=== PATIENT | male | born 2000 | race Caucasian/White ===

== ENCOUNTER 2022-07-02 06:57 | Emergency (ER) | payer OTHER, SELFPAY ==
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
[2022-07-02 07:40] VITALS: BP 118/67; PULSE 66; RESP 16; TEMP 36.6; O2SAT 100
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
[2022-07-02 10:37] VITALS: BP 122/77; PULSE 80; RESP 16; O2SAT 100
== END 2022-07-02 10:39 | disposition home or self-care (01) ==
PROVIDERS: Emergency Provider General Practice; PCP Internal Medicine
DX: M25.512 Pain in left shoulder (principal); V28.49XA Other motorcycle driver injured in noncollision transport accident in traffic accident, initial encounter
CPT/HCPCS: 73030; 99283

== ENCOUNTER 2023-02-01 22:44 | Emergency (ER) | payer SELFPAY ==
[2023-02-01 22:52] VITALS: BP 140/72; PULSE 98; RESP 15; TEMP 37.1; O2SAT 98
[2023-02-01] MEDS: KETOROLAC 30 MG/ML VIAL (*BKC) IM (23:25)
[2023-02-02 00:09] LABS: Strep Group A RT-PCR NOT DETECTED (Negative)
[2023-02-02 00:23] LABS: Influenza A QL RT-PCR Negative (Negative); Influenza B QL RT-PCR Negative (Negative); RSV RNA, RT-PCR Negative (Negative); SARS-CoV-2 RNA PCR Negative (Negative)
--- NOTE | 2023-02-02 00:27 | ED.FEVER ---
HPI - Fever General Chief Complaint: Fever Stated Complaint: fever Time Seen by Provider: 02/01/23 23:08 History of Present Illness HPI Narrative: A few days ago patient started having a sore throat, with swollen lymph nodes and a fever, he has been taking Tylenol and his doctor started him on amoxicillin which he has taken 2 days of but he is still having symptoms. Related Data Allergies Allergy/AdvReac Type Severity Reaction Status Date / Time No Known Allergies Allergy Verified 02/01/23 22:55 Review of Systems Review of Systems: CONST: fever. HEENT: sore throat C/V: No chest pain RESP: No cough GI: No abdominal pain : No dysuria. M/S: No joint pain. SKIN: No rash. NEURO: Mild headache PSYCH: [No depression] [facility] Past Medical History Medical History (Updated 02/02/23 @ 00:29 by Kavitha Harvey MD) Patient denies medical problems Social History Social History (Updated 07/02/22 @ 10:16 by Holly Easton MD) Smoking status: Never smoker Exam Narrative: EXAMINATION OF ORGAN SYSTEMS/BODY AREAS: Constitutional: Vital signs per nursing GENERAL:[No acute distress, non-toxic appearing.] HEAD: Normal with no signs of head trauma. EYES: EOMI, conjunctiva normal ENT: Some tonsillar erythema and swelling without exudates, uvular deviation, or muffled voice LUNGS: Nonlabored breathing. HEART: [Regular rate and rhythm] ABD: [Soft], [nontender to palpation] EXT: Normal range of motion SKIN: [No rashes or lesions.] NEURO: [Alert and oriented x 3. No gross focal sensory or strength deficits.] PSYCH: Normal affect Course Vital Signs Vital signs: Vital Signs Temperature 98.7 F 02/01/23 22:52 Pulse Rate 98 02/01/23 22:52 Respiratory Rate 15 02/01/23 22:52 Blood Pressure 140/72 02/01/23 22:52 Pulse Oximetry 98 02/01/23 22:52 Oxygen Delivery Room Air 02/01/23 22:52 Temperature 98.7 F 02/01/23 22:52 Pulse Rate 98 02/01/23 22:52 Respiratory Rate 15 02/01/23 22:52 Blood Pressure 140/72 02/01/23 22:52 Pulse Oximetry 98 02/01/23 22:52 Oxygen Delivery Room Air 02/01/23 22:52 MDM - Fever MDM Narrative Medical decision making narrative: ED COURSE AND MEDICAL DECISION MAKING: This 22year old patient presents with symptoms most suggestive of viral upper respiratory tract infection. He does have some palpable lymph nodes and tonsillar erythema, without any signs of airway compromise, and he has nonlabored respirations. Patient is treated symptomatically with Toradol. Strep and flu, RSV, COVID swabs obtained are negative. On reevaluation, he is improved and discharged home in stable condition with expectant management and PCP follow-up. Return precautions were provided. Lab Data Labs: Lab Results 02/01/23 Range/Units 23:36 Influenza A (RT-PCR) Negative (Negative) Influenza B (RT-PCR) Negative (Negative) RSV (RT-PCR) Negative (Negative) SARS-CoV-2 RNA (RT-PCR) Negative (Negative) Group A Strep (PCR) Not detected (Negative) Discharge Plan Discharge Clinical Impression: Acute viral syndrome Patient Disposition: Home, Self-Care Condition: Stable Instructions: Antibiotic Form, Upper Respiratory Infection (ED) Additional Instructions: Please follow up with your doctor; you can always return for any further issues. Prescriptions: New naproxen 250 mg tablet 250 mg PO BID PRN (Reason: fever or pain) Qty: 20 0RF Follow-up/Referrals: Holden,Rowdy Mcneil MD [Primary Care Provider] - 2 Days
== END 2023-02-02 00:45 | disposition home or self-care (01) ==
PROVIDERS: Emergency Provider Emergency Medicine; PCP Internal Medicine
DX: B34.9 Viral infection, unspecified (principal); Z20.822 Contact with and (suspected) exposure to COVID-19
CPT/HCPCS: 87637; 87651; 96372; 99283; J1885

== ENCOUNTER 2023-02-02 08:12 | Emergency (ER) | payer SELFPAY ==
--- NOTE | ~2023-02-02 | XR_ITS ---
EXAMINATION: XR chest 2V DATE: 02/02/2023 08:56 INDICATION: Cough TECHNIQUE: PA and lateral views of the chest were obtained. COMPARISON: None FINDINGS: The lungs are clear with no focal airspace opacities, pulmonary edema, pleural effusion or pneumothor ax. The cardiomediastinal silhouette is normal. Visualized bones and soft tissues are unremarkable. IMPRESSION: 1. Normal chest radiograph. Reviewed, dictated and finalized at location A. IMPRESSION: 1. Normal chest radiograph.
[2023-02-02 08:15] VITALS: BP 147/74; PULSE 99; RESP 16; TEMP 37.1; O2SAT 100
--- NOTE | 2023-02-02 09:06 | ED.GENADULT ---
HPI - General Adult General Chief complaint: Upper Respiratory Infection Stated complaint: fever,sore throat Time Seen by Provider: 02/02/23 08:38 History of Present Illness HPI narrative: 22-year-old male presented the emergency department for evaluation of persistent fever cough chills and generalized weakness. Patient was evaluated in the emergency department last night and had negative COVID flu RSV and strep. Patient presented to the emergency department again for further evaluation stating that he still does not feel better. Over the course of the few days patient has been alternating between Tylenol and ibuprofen. Patient was discharged with naproxen. Patient's primary care physician started him on amoxicillin. Related Data Allergies Allergy/AdvReac Type Severity Reaction Status Date / Time No Known Allergies Allergy Verified 02/02/23 08:29 Review of Systems Review of Systems: All systems reviewed & are unremarkable except as noted in HPI and below PMFSH Past Medical History Medical History (Updated 02/02/23 @ 09:15 by Luis Le MD) Patient denies medical problems Social History Social History (Updated 07/02/22 @ 10:16 by Holly Easton MD) Smoking status: Never smoker Exam Narrative: APPEARANCE: Well appearing, no pain, no distress, well-nourished. HEAD: normocephalic, atraumatic. EYES: PERRLA/EOMI, conjunctivae clear. NOSE: Normal no drainage EARS:TMS clear with good light reflex. THROAT: Pharynx clear, no exudate. NECK: Supple. No adenopathy, no masses. RESPIRATORY: Airway patent, respirations nonlabored. Clear to auscultation bilaterally, no rales, rhonchi, wheezing. CARDIOVASCULAR: Regular rate and rhythm without murmurs rubs or gallops. ABDOMINAL: Soft, nontender, nondistended, normal bowel sounds MUSCULOSKELETAL: Moves all extremities. Strength/ROM intact, No edema, No calf tenderness. NEURO: Alert. Cranial nerves II through XII intact. Grossly intact SKIN: Warm, dry. Normal Color Course Course Emergency Course: 22-year-old male presented the ED for evaluation of cough congestion fever and chills. Patient has already been taking amoxicillin as outpatient. Patient will be switched to Augmentin and azithromycin since he has already been started on antibiotics. Chest x-ray showed no acute cardiopulmonary abnormality. Patient and family were updated on the results of the work-up. All questions were addressed and patient was well-appearing at time of discharge. Vital Signs Vital signs: Vital Signs Temperature 98.8 F 02/02/23 08:15 Pulse Rate 99 02/02/23 08:15 Respiratory Rate 16 02/02/23 08:15 Blood Pressure 147/74 H 02/02/23 08:15 Pulse Oximetry 100 02/02/23 08:15 Oxygen Delivery Room Air 02/02/23 08:15 Temperature 98.8 F 02/02/23 08:15 Pulse Rate 100 02/02/23 09:43 Respiratory Rate 18 02/02/23 09:43 Blood Pressure 115/74 02/02/23 09:43 Pulse Oximetry 98 02/02/23 09:43 Oxygen Delivery Room Air 02/02/23 08:26 Medical Decision Making Vital Signs Vital Signs: Vital Signs Temperature 98.8 F 02/02/23 08:15 Pulse Rate 99 02/02/23 08:15 Respiratory Rate 16 02/02/23 08:15 Blood Pressure 147/74 H 02/02/23 08:15 Pulse Oximetry 100 02/02/23 08:15 Oxygen Delivery Room Air 02/02/23 08:15 Temperature 98.8 F 02/02/23 08:15 Pulse Rate 100 02/02/23 09:43 Respiratory Rate 18 02/02/23 09:43 Blood Pressure 115/74 02/02/23 09:43 Pulse Oximetry 98 02/02/23 09:43 Oxygen Delivery Room Air 02/02/23 08:26 Imaging Data Radiologist's impression: Impressions Chest X-Ray 02/02/23 09:08 IMPRESSION: 1. Normal chest radiograph. Discharge Plan Discharge Clinical Impression: Upper respiratory infection Patient Disposition: Home, Self-Care Condition: Stable Instructions: Antibiotic Form Additional Instructions: Stop taking the amoxicillin. Start taking Augmenti
[2023-02-02] MEDS: AZITHROMYCIN 250 MG TABLET 500 MG PO (09:37)
[2023-02-02] MEDS: AMOXICILLIN/CLAVULANATE K 875-125 MG TAB 1 TABLET PO (09:37)
[2023-02-02 09:43] VITALS: BP 115/74; PULSE 100; RESP 18; O2SAT 98
== END 2023-02-02 09:46 | disposition home or self-care (01) ==
PROVIDERS: Emergency Provider Emergency Medicine; PCP Internal Medicine
DX: J06.9 Acute upper respiratory infection, unspecified (principal)
CPT/HCPCS: 71046; 99283; A9270

== ENCOUNTER 2024-12-09 12:47 | Emergency (ER) | payer BC, SELFPAY ==
--- NOTE | ~2024-12-09 | US_ITS ---
TESTICULAR ULTRASOUND (Doppler ultrasound interrogation techniques used as needed for this exam.) Ordering provider: Aric Hatch MD History: . right testicular pain . Comparison: None. FINDINGS: TESTICLES: Normal in size. The right measures 4.4x 2.1x 3.1 cm and the left measures 4.6x 2.4x 3.1 cm . Normal echogenicity bilaterally without mass lesion. Normal Doppler flow bilaterally. EPIDIDYMIDES: Normal in size. Normal echogenicity bilaterally. Both demonstrate normal Doppler flow. HYDROCELE: Bilateral small. VARICOCELE: None. OTHER ABNORMALITY: None seen. IMPRESSION: Bilateral small hydrocele. Otherwise, normal testicular ultrasound. Reviewed, dictated and finalized at location A.
--- NOTE | ~2024-12-09 | CT_ITS ---
EXAMINATION: CT abdomen pelvis wo con DATE: 12/09/2024 15:01 INDICATION: Right groin and testicular pain. TECHNIQUE: Computed tomography (CT) of the abdomen and pelvis was performed without intravenous contr ast. Automated exposure control and iterative reconstruction technique were employed. The dose-length product was 740.84 mGy-cm. COMPARISON: None FINDINGS: Lung bases are clear. Heart size is normal. No pericardial or pleural effusion. Liver, gallbladder, s pleen, pancreas and bilateral adrenal glands are normal. Kidneys and ureters are normal with no uroli thiasis, hydroureteronephrosis or perinephric/ureteral stranding. Bowels including the appendix are n ormal. Bladder is normal. There is an approximately 1.2 cm cystic lesion at the midline of the metal machine operator ior superior prostate which given location favors a utricle cyst. No free intraperitoneal gas or flui d. No pathologically enlarged abdominal or pelvic lymphadenopathy. Mild lumbar spondylosis. IMPRESSION: 1. No urolithiasis or acute intra-abdominal/pelvic process. 2. 1.3 cm midline shift cystic lesion in the posterior superior prostate which given location favors a utricle cyst. Reviewed, dictated and finalized at location A.
[2024-12-09 12:55] VITALS: BP 108/84; PULSE 93; RESP 20; TEMP 36.4; O2SAT 98
[2024-12-09 14:11] VITALS: BP 108/84; PULSE 93; RESP 18; TEMP 36.4; O2SAT 97
--- NOTE | 2024-12-09 14:22 | ED_ITS ---
HPI - Male Genitourinary General Chief complaint: Urogenital-Male Stated complaint: R SCROTAL PAIN Time Seen by Provider: 12/09/24 14:10 History of Present Illness HPI Narrative: 23-year-old otherwise healthy male presenting to the ER for evaluation of right- sided testicular pain for 3 days. Patient went to his primary care provider had a scrotal ultrasound done yesterday and was told that it was unremarkable. He has worsening pain today and feel dull achiness testicle radiating towards his groin. No history of abdominal pain, back pain, fever, chills. No nausea. No trauma or injury. No history of STDs or STIs. No urinary discomfort, burning, foul odor or any hesitancy. No history of testicular masses or testicular torsion. No surgery. Has not tried anything for pain. Rates his pain 7/10. Related Data Allergies Allergy/AdvReac Type Severity Reaction Status Date / Time No Known Allergies Allergy Verified 02/02/23 08:29 Review of Systems Review of Systems: As reviewed above in HPI [facility] Past Medical History Medical History Patient denies medical problems Social History Social History Smoking status: Never smoker Exam Narrative: GENERAL: [Well-appearing, well-nourished, and in no acute distress.] HEAD: [Normocephalic, atraumatic.] EYES: [PERRLA and EOMI.] ENT: Nares clear, no rhinorrhea or epistaxis. Mucous membranes moist. NECK: Supple. CHEST: [Clear to auscultation. No respiratory distress.] HEART: [Regular rate and rhythm]. No murmur heard. [Normal peripheral pulses.] ABDOMEN: [Soft, nondistended], [nontender], [No rigidity or guarding] : Circumcised penis, testicle with tenderness to palpation along the right- sided but no testicular swelling. No inguinal masses, hernias, palpable epididymis with mild tenderness. Negative prehn sign. EXTREMITIES: Normal range of motion. [No edema.] SKIN: Warm, dry, no rash. NEURO: [No focal deficits]. Alert and oriented [x3.] PSYCH: [Normal mood and affect.] Course Vital Signs Vital signs: Vital Signs Temperature 36.4 C 12/09/24 12:55 Pulse Rate 93 12/09/24 12:55 Respiratory Rate 20 12/09/24 12:55 Blood Pressure 108/84 12/09/24 12:55 Pulse Oximetry 98 12/09/24 12:55 Oxygen Delivery Room Air 12/09/24 12:55 Temperature 36.6 C 12/09/24 15:36 Pulse Rate 70 12/09/24 15:36 Respiratory Rate 18 12/09/24 15:36 Blood Pressure 121/77 12/09/24 15:36 Pulse Oximetry 98 12/09/24 15:36 Oxygen Delivery Room Air 12/09/24 14:11 MDM - Male Genitourinary MDM Narrative Medical decision making narrative: 23-year-old male presenting with right-sided testicular pain for 3 days. Head testicular ultrasound done yesterday at outside hospital was told was unremarkable. Patient denies any infectious symptoms such as fever, chills, back pain, dysuria, foul odor or penile discharge. Denies any chance of STDs. He is otherwise well-appearing, normal vital signs with any fever tachycardia, hypoxia blood pressure concerns. Examination is reassuring but does have reproducible tenderness to palpation along the right hemiscrotum and testicle. No overlying skin changes, no signs of external symptoms of torsion. Testicular ultrasound was ordered this time as well as CT scan without contrast to rule out any other process such as hernia or kidney stone. Urinalysis and urine STD testing ordered. He was given intramuscular Dilaudid for analgesia and re- evaluated. Differential diagnosis includes hydrocele, varicocele, testicular torsion, epididymitis, urinary tract infection, kidney stone, bladder stone. Patient's urinalysis was unremarkable. No blood or infection. STD panel negative. Scrotal ultrasound shows bilateral small hydroceles otherwise a normal testicular exam. CT scan shows no ureterolithiasis, no urolithiasis, no acute intra-abdominal or pelvic process. There is a 1.3 cm midline cystic lesion in the posterior superior prostate which is consistent with the utricle cyst in could be contributing to patient's symptoms and hydroceles. Patient made aware of his imaging findings and will be given Urology outpatient follow-up instructions. Encouraged to take Tylenol and ibuprofen for any pain and return with any emergent concerns. Medical Records Attestation: I reviewed the patient's medical records. Lab Data Attestation: I reviewed the patient's lab results. Labs: Lab Results 12/09/24 12/09/24 Range/Units 14:26 14:27 Urine Color Yellow (Yellow) Urine Appearance Clear (Clear) Urine pH 6.0 (5.0-9.0) Ur Specific [place] 1.023 (1.001-1.035) Urine Protein Negative (Negative) mg/dL Urine Glucose (UA) Negative (Negative) mg/dL Urine Ketones Negative (Negative) mg/dL Ur Blood (Man) Negative (Negative) Urine Nitrate Negative (Negative) Urine Bilirubin Negative (Negative) Urine Urobilinogen 1.0 (<2.0) mg/dL Leukocyte Esterase Rfl Negative (Negative) RACHEAL/UL C. trachomatis (PCR) Not detected (NOT DETECTE) N. gonorrhoeae (PCR) Not detected (NOT DETECTE) T. vaginalis (PCR) Not detected (NOT DETECTE) Imaging Data Attestation: I personally reviewed and interpreted this imaging study as follows: My impression: Impressions Scrotum Ultrasound 12/09/24 15:14 IMPRESSION: Bilateral small hydrocele. Otherwise, normal testicular ultrasound. Abdomen/Pelvis CT 12/09/24 15:39 IMPRESSION: 1. No urolithiasis or acute intra-abdominal/pelvic process. 2. 1.3 cm midline shift cystic lesion in the posterior superior prostate which given location favors a utricle cyst. Discharge Plan Discharge Clinical Impression: Prostatic utricle cyst, Bilateral hydrocele Patient Disposition: Home Condition: Stable Instructions: Antibiotic Form, Hidrocele (ED), Testicle Pain (ED), Scrotal Pain (ED) Additional Instructions: Your imaging studies show a 1.3 cm cyst in the prostate which could be a utricle cyst and causing your symptoms. You also have some small bilateral fluid collections in your scrotum but no signs of active infection which again likely related to the above. Your urine studies are reassuring without any findings. Follow-up with the provided urology specialist, take Tylenol and ibuprofen for aches and pains, scrotal support underwear for pain control. Return with any emergent concerns. Patient Language: Danish Prescriptions: No Action naproxen 250 mg tablet 250 mg PO BID PRN (Reason: fever or pain) Qty: 20 0RF amoxicillin-pot clavulanate 875-125 mg tablet 1 tablet PO Q12H Qty: 14 0RF azithromycin 250 mg tablet See Rx Instructions .ROUTE .COMPLEX Qty: 6 0RF Rx Instructions: For 250 mg dose pack: take 500 mg today (day 1), then 250 mg for 4 days (days 2-5) Follow-up/Referrals: Hatch,Rowdy Mcneil MD [Primary Care Provider] - Nima Hand MD [Physician] - 1 Week (B/L hydroceles and utricle cyst) Time of Disposition: 16:54
[2024-12-09 14:42] LABS: Add Urine Microscopic? NO; Appearance Urine Clear (Clear); Bilirubin Urine Negative (Negative); Blood Urine Negative (Negative); Color Urine Yellow (Yellow); Glucose Urine UA Negative (Negative); Ketones Urine Negative (Negative); Leukocyte Esterase Ur Negative LEU/UL (Negative); Nitrate Urine Negative (Negative); Protein Urine Negative (Negative); Specific Grav Ur 1.023 (1.001-1.035)
[2024-12-09] MEDS: HYDROmorphone HCL INJ (*CRX) 2 MG/ML VIAL 0.5 MG IM (15:03)
[2024-12-09 15:36] VITALS: BP 121/77; PULSE 70; RESP 18; TEMP 36.6; O2SAT 98
[2024-12-09 15:48] LABS: Trichomonas Vag PCR NOT DETECTED (NOT DETECTE)
[2024-12-09 16:10] LABS: Chlamydia trachomatis NOT DETECTED (NOT DETECTE); Neisseria gonorrhoeae PCR NOT DETECTED (NOT DETECTE)
== END 2024-12-09 17:22 | disposition home or self-care (01) ==
PROVIDERS: Emergency Provider Student in an Organized Health Care Education/Training Program; PCP Internal Medicine
DX: N42.83 Cyst of prostate (principal); N43.3 Hydrocele, unspecified; Z11.3 Encounter for screening for infections with a predominantly sexual mode of transmission
CPT/HCPCS: 74176; 76870; 81003; 87491; 87591; 87661; 93976; 96372; 99284; J1171

== ENCOUNTER 2025-03-04 16:25 | Emergency (ER) | payer BC, SELFPAY ==
--- NOTE | 2025-03-04 16:28 | ED_ITS ---
HPI - Skin/Abscess/Foreign Bdy General Chief complaint: Skin/Abscess/Foreign Body Stated complaint: Insect Bite on LT Arm Time Seen by Provider: 03/04/25 16:26 Source: patient Mode of arrival: ambulatory Limitations: no limitations History of Present Illness HPI narrative: Patient is a 24-year-old male who presents with wasp sting 2 days ago to left upper arm. Since then area of redness has grown and become swollen and warm to touch. Patient took Benadryl today. Denies any fever, chills, nausea vomiting, diarrhea. Related Data Home Medications ?Medication ?Instructions ?Recorded ?Confirmed ?Last Taken ?Type levothyroxine 50 mcg tablet mcg 03/04/25 Unknown Hist ory paroxetine HCl 20 mg tablet mg PO 03/04/25 Unknown Hi story Allergies Allergy/AdvReac Type Severity Reaction Status Date / Time No Known Allergies Allergy Verified 03/04/25 16:27 Review of Systems 2 Review of Systems: All systems reviewed & are unremarkable except as noted in HPI and below Constitutional: Constitutional: Denies body ache(s), Denies chills, Denies fatigue, Denies fever(s), Denies headache(s), Denies malaise and Denies weakness Eyes: Eyes: Denies blurry vision, Denies irritation and Denies loss of vision ENT: Denies otalgia, Denies headache(s), Denies nasal discharge, Denies sinus pain and Denies sore throat Cardiovascular: Cardiovascular: Denies chest pain, Denies irregular heart rhythm and Denies dyspnea Respiratory: Respiratory: Denies dyspnea Gastrointestinal: Gastrointestinal: Denies abdominal pain, Denies melena, Denies hematochezia, Denies diarrhea, Denies nausea and Denies vomiting Musculoskeletal: Musculoskeletal: Denies back pain, Denies myalgias and Denies arthralgias Integumentary/Breasts: Skin/Breast: Denies pruritus, Reports erythema, Denies rash and Reports skin swelling Neurologic: Denies headache(s), Denies loss of vision and Denies weakness Psychiatric: Psychiatric: Reports no additional psychiatric complaints Endocrine: Endocrine: Denies fatigue PMF Past Medical History Medical History Patient denies medical problems Social History Social History Smoking status: Never smoker Comments At time of signature, agree with nursing past medical, surgical, social and family history. There is no relevant family history pertinent to the presenting complaint. Exam 2 Const: General: cooperative, healthy appearing, comfortable, no acute distress and well nourished Nutritional Appearance: well nourished O rientation/consciousness: patient oriented x3 Limitations: no limitations HENMT: Head: normal to inspection, normocephalic and atraumatic Ears: h earing grossly normal bilaterally and external ears normal Face/Nose/Sinus: N ormal external nose present, normal facial exam and face symmetric Face and sinus: normal facial exam and face symmetric Mouth: Yes lip normal Eyes: General: appearance normal, both eyes and all related structures A lignment and Position: alignment normal and position normal Periorbital: p eriorbital findings normal Eyelids: eyelids normal Pupils: Equal, round and reactive pupils present EOM: EOMs intact bilaterally Neck: Neck: normal visual inspection, full ROM and supple Chest: Chest palpation & inspection: normal inspection of the chest Resp: Effort & Inspection: normal respiratory effort and able to speak in complete sentences Auscultation: clear to auscultation bilaterally Cardio: Rate: regular rate Rhythm: regular rhythm Heart sounds: S1 normal heart sound present and S2 normal heart sound present GI: Inspection: normal to inspection Skin: General skin exam: normal color and no rashes or lesions noted Full body images: 1. 15 cm x 14 cm area of erythema, swelling, warmth and induration Neuro: General: patient oriented x3 and moves all extremities Cranial nerves: Yes Equal, round and reactive pupils present Speech: normal speech Gait exam (Neuro): Normal gait present Extrem: General: normal to inspection, full ROM and no edema Psych: Appearance: grossly normal and well kempt Mental Status: mental status grossly normal Speech and movement: Normal speech and movement present Affect: normal affect Attitude: cooperative Thought process: Normal thought process present Course Course Emergency Course: Patient is aware of diagnosis, understands and agrees to treatment plan. Anticipatory guidance given. Patient agrees to follow-up as directed and is aware of reasons to seek care at the emergency department. Portions of this record may have been created with voice recognition software Level of Care: Express Care Visit Vital Signs Vital signs: Vital Signs Temperature 37.1 C 03/04/25 16:35 Pulse Rate 77 03/04/25 16:35 Respiratory Rate 18 03/04/25 16:35 Blood Pressure 129/69 03/04/25 16:35 Pulse Oximetry 98 03/04/25 16:35 Oxygen Delivery Room Air 03/04/25 16:35 Temperature 37.1 C 03/04/25 16:35 Pulse Rate 77 03/04/25 16:35 Respiratory Rate 18 03/04/25 16:35 Blood Pressure 129/69 03/04/25 16:35 Pulse Oximetry 98 03/04/25 16:35 Oxygen Delivery Room Air 03/04/25 16:35 Reviewed MDM - Skin/Abscess/Foreign Bdy MDM Narrative Medical decision making narrative: Pt well hydrated appearing, in no respiratory distress, hemodynamically stable. Recommend supportive care. The patient is stable at time of discharge the clinical impression was discussed and the patient was given the opportunity to ask questions, which were addressed as completely as possible given the information available at present. Anticipatory guidance and return to care precautions were discussed and the importance of primary care follow-up was stressed and encouraged. The patient voiced understanding of the plan, indications to return, and the need for follow-up. Exam findings show no acute concerns or changes Patient is appropriate for outpatient treatment and follow-up. Differential Diagnosis Differential diagnosis: Likely viral exanthem, allergic reaction to drug, cellulitis, insect bites (Sting) and contact dermatitis Medical Records Attestation: I reviewed the patient's medical records. Discharge Plan Discharge Clinical Impression: Accidental wasp sting Cellulitis Qualifiers: Site of cellulitis: extremity Site of cellulitis of extremity: upper extremity Laterality: left Qualified Code(s): L03.114 - Cellulitis of left upper limb Patient Disposition: Home Condition: Stable Instructions: Cellulitis (ED) Additional Instructions: Take antibiotics as prescribed. Start steroids after float trip and take them in the morning with food Seek Emergency Help If You Notice: ? Difficulty breathing or swallowing ? Swelling of the lips, tongue, or throat ? Hives over a large area ? Dizziness or fainting ? Nausea, vomiting, or a racing heart These may indicate anaphylaxis, a life-threatening allergic reaction. Call 911 or go to the ER immediately. For Less Severe Reactions (but with significant swelling): 1.?Antihistamines ? Diphenhydramine (Benadryl): 25?50 mg every 4?6 hours (adults) ? Non-drowsy alternatives: cetirizine (Zyrtec), loratadine (Claritin), fexofenadine (Vanessa) 2.?Cold Compress ? Apply a cold pack or cloth-wrapped ice to the area for 10?15 minutes at a time to reduce swelling and pain. 3.?Elevation ? Keep the head elevated, especially when lying down, to help reduce facial swelling. 4.?Pain Relief ? Tylenol 650-1000mg by mouth every 4-6 hours. Do not exceed 4000mg in 24 hours. ? Advil (Ibuprofen) 600 mg by mouth every 6 hours. Do not exceed 2400mg in 24 hours. 8 AM: Tylenol 11 AM: Ibuprofen 2 PM: Tylenol 5 PM: Ibuprofen 8 PM: Tylenol 11 PM: Ibuprofen 2 AM: Tylenol 5 AM: Ibuprofen 5.?Topical Corticosteroids ? Apply 1% hydrocortisone cream to the sting site (avoid near eyes or open skin). Patient Language: Citizen Of [place] Prescriptions: New clindamycin HCl 300 mg capsule 300 mg PO Q8H 10 Days Qty: 30 0RF prednisone 20 mg tablet See Rx Instructions .ROUTE .COMPLEX Qty: 9 0RF Rx Instructions: 40 mg daily x3 days, 20 mg daily x3 days No Action levothyroxine 50 mcg tablet paroxetine HCl 20 mg tablet PO Follow-up/Referrals: Holden,Rowdy Mcneil MD [Primary Care Provider] - 3 Days Stand Alone Forms: Work/School Release IP Time of Disposition: 16:53
[2025-03-04 16:35] VITALS: BP 129/69; PULSE 77; RESP 18; TEMP 37.1; O2SAT 98
== END 2025-03-04 17:00 | disposition home or self-care (01) ==
PROVIDERS: Emergency Provider Nurse Practitioner Family; PCP Internal Medicine
DX: T63.461A Toxic effect of venom of wasps, accidental (unintentional), initial encounter (principal); L03.114 Cellulitis of left upper limb; Z79.899 Other long term (current) drug therapy
CPT/HCPCS: 99213; G0463